=== PATIENT | female | born 1935 | race Caucasian/White ===

== ENCOUNTER 2017-10-18 00:05 | Inpatient (IN) | payer OTHER ==
[2017-10-18] VITALS (13 sets, daily range): BP systolic 111–145; BP diastolic 58–85
[~2017-10-18] VITALS: Ht 160 cm; Wt 53.1 kg
[~2017-10-18 00:05] MED LIST: ALLEGRA ALLERG180 MG PO; ASPIRIN81 M2 PO; CORGARD40 M1 PO; KLOR-CON 1010 MEQ PO; MULTIVITAMINS; PROZAC 20 MG20 MG PO; REMICADE 1100 MG/VIA IV; TRIAMTERENE-HC1 EACH PO; TUMS PO; VITAMIN D3400 UNIT PO; ZOCOR 20 MG TAB20 M1 PO
[2017-10-18] MEDS ORDERED: REMICADE 1100 MG/VIA (00:16)
[2017-10-18] MEDS ORDERED: CULTURELLE1 EAC1 PO (00:17)
[2017-10-18] MEDS ORDERED: PEPCID20 MG PO (00:18)
[2017-10-18] MEDS ORDERED: MULTIVITAMINS PO (00:18)
[2017-10-18 00:35] LABS: ABSOLUTE EOSINOPHILS 0.5 thou/uL (0.0-0.7); ABSOLUTE LYMPHOCYTES 2.7 thou/uL (0.8-5.3); ABSOLUTE MONOCYTES 0.9 thou/uL (0.0-1.2); ABSOLUTE NEUTROPHILS 8.9 thou/uL (1.6-8.1); BASOPHILS 0.3 %; EOSINOPHILS 3.5 %; HEMATOCRIT 40.8 % (37.0-47.0); HEMOGLOBIN 13.4 gm/dL (12.0-15.0); LYMPHOCYTES 21.1 %; MCHC 32.8 g/dL (28.0-37.0); MCV 91.3 fL (80.0-100.0); MONOCYTES 6.8 %; MPV 9.2 fl. (7.2-11.1); NUCLEATED RBCS 0 /100WBC; PLATELET COUNT* 298 thou/uL (150-400); POLYS 68.3 %; RBC 4.47 mil/uL (4.20-5.00); RDW-CV 15.5 % (10.5-14.5)
[2017-10-18 00:39] LABS: CALCIUM 8.9 mg/dL (8.5-10.1); POTASSIUM 3.8 mmol/L (3.5-5.1)
[2017-10-18 00:42] LABS: APTT 28.9 Seconds (25.0-31.3); PROTIME 9.9 Seconds (9.20-11.50)
[2017-10-18 00:57] LABS: ALBUMIN 3.3 g/dL (3.4-5.0); CK-MB MASS 6.3 ng/mL (<0.5-3.6); MAGNESIUM 1.6 mg/dL (1.8-2.4); TOTAL BILIRUBIN 0.2 mg/dL (<0.1-1.0); TOTAL PROTEIN 7.1 g/dL (6.4-8.2); TROPONIN-I LEVEL 0.26 ng/mL (<0.06)
--- NOTE | 2017-10-18 08:10 | NUR ---
CALL FROM DIRECTOR OF CONTENT AND PROGRAMMING, [facility] NURSEIRINA WAS CONTACTED ABOUT PT AND ELEVATED TROPONIN
--- NOTE | 2017-10-18 09:02 | NUR ---
DR SANTORO REQUESTING TO BE TOLD WHEN PT'S DAUGHTER VISITS THE PT SO HE CAN EXPLAIN THAT THE PT NEEDS TO GO TO CARDIAC LINE INSPECTOR.
--- NOTE | 2017-10-18 09:51 | NUR ---
DR SANTORO IS SPEAKING WITH PT AND HER FAMILY MEMBERS AT THIS TIME.
--- NOTE | 2017-10-18 21:50 | NUR ---
ABOUT 30 MIN AFTER STEPPING OUT OF PT ROOM. PT STARTED REMOVING IV'S, TOOK OFF LEADS, PULLED OUT HER VILLEDA. TRYING TO GET OF BED. SHE BECAME COMBATIVE, EXTREMELY CONFUSED, TRYING TO HIT STAFF. TWO OF US WERE HOLDING HER DOWN WHILE DAUGHTER WAS CALLED AND WAITING ON CALL BACK. WHEN DAUGHTER ARRIVED PT DID NOT CALM DOWN. DAUGHTER (NUHA) SAID THIS WAS NOT LIKE HER AT HOME SHE STATED "SHE IS COMPLETELY OUT OF IT, SHE LIVES AT HOME ON HER OWN AND IS VERY CHILL ALWAYS RELAXED, THIS IS NOT HER". NUHA TRIED GIVING PT HER BRILINTA PT SPIT IT OUT TOWARDS HER. AFTER NO OTHER MEASURES TO CALM PT DOWN ORDERS RECIEVED TO PLACE RESTRAINTS ON PT. FAMILY AGREED WITH PLAN. SHE RECIEVED ONE DOSE OF ATIVAN AND THAT SEEMED TO DE-ESCALATE HER COMBATIVE BEHAVIOR. SPOKE WITH CARDIOLOGY ABOUT NOT BEING ABLE TO TAKE BRILINTA D/T PT CURRENT STATE. ORDERS TO START AGGRASTAT IV GTT TELL PT IS ABLE TO TAKE PO BRILINA.
[2017-10-19] VITALS (17 sets, daily range): BP systolic 103–140; BP diastolic 49–90
[2017-10-19 04:32] LABS: ABSOLUTE BASOPHILS 0.1 thou/uL (0.0-0.2); ABSOLUTE EOSINOPHILS 0.1 thou/uL (0.0-0.7); ABSOLUTE MONOCYTES 0.9 thou/uL (0.0-1.2); ABSOLUTE NEUTROPHILS 12.4 thou/uL (1.6-8.1); BASOPHILS 0.4 %; EOSINOPHILS 0.6 %; HEMATOCRIT 35.1 % (37.0-47.0); HEMOGLOBIN 11.5 gm/dL (12.0-15.0); MCH 29.8 pg (26.0-34.0); MCHC 32.7 g/dL (28.0-37.0); MCV 91.2 fL (80.0-100.0); NUCLEATED RBCS 0 /100WBC; PLATELET COUNT* 244 thou/uL (150-400); RBC 3.85 mil/uL (4.20-5.00); RDW-CV 15.4 % (10.5-14.5); WBC 15.5 thou/uL (4.0-11.0)
[2017-10-19 04:48] LABS: CALCIUM 8.5 mg/dL (8.5-10.1); CREATININE 0.9 mg/dL (0.6-1.3); POTASSIUM 3.2 mmol/L (3.5-5.1)
--- NOTE | 2017-10-19 05:03 | NUR ---
PATIENT PROGRESSING TOWARDS GOALS. SHE IS CURRENTLY SLEEPING. BP WNL. ART-LINE IN PLACE. ON 2L O2. AGGRASTAT GTT RUNNING PER CARDIOLOGY ORDERS. PT SHEATH IN PLACE EXPECTED TO BE REMOVED IN A.M. LEFT LEG REMAINS STRAIGHT IN RESTRAINT. PT HAS BILATERAL SOFT WRIST RESTRAINTS. UO ADEQUATE, VILLEDA IN PLACE. BED TO LOWEST POSITION. RECIEVED Q2H TURNS. CONSISTENT OBSERVATION NEEDED THROUGHOUT SHIFT.
--- NOTE | 2017-10-19 08:27 | NUR ---
Phone conversation with Dr. Brewer stated to pull sheath and maintain bleeding before CT of head completed. CT notified.
[2017-10-19 10:44] LABS: CALCIUM 8.5 mg/dL (8.5-10.1); CREATININE 0.9 mg/dL (0.6-1.3); MAGNESIUM 1.4 mg/dL (1.8-2.4)
[2017-10-19 10:45] LABS: POTASSIUM 2.9 mmol/L (3.5-5.1)
--- NOTE | 2017-10-19 11:05 | 2DMMODE ---
[place] [address] 2 D/M-MODE ECHOCARDIOGRAM Name: KAYLA MENDOZA Room: 006-P ADM IN [facility]#: [id number] Admission: 10/18/17 Attend Phys: Boyd Brewer, Discharge: Date of : 33 Date of Service: 10/19/17 1105 Report #: [id number] THIS REPORT FOR: //name// APPROVED REPORT Study performed: 10/19/2017 09:54:55 EXAM: Comprehensive 2D, Doppler, and color-flow Echocardiogram Patient Location: In-Patient Room #: 006 Status: routine BSA: 1.49 HR: 69 bpm BP: 125/60 mmHg Rhythm: NSR Other Information Study Quality: Good Indications Elevated Troponin Chest Pain 2D Dimensions LVEF(%): 66.14 (>50%) IVSd: 11.15 (7-11mm) LVOT Diam: 19.27 (18-24mm) LVDd: 49.06 mm PWd: 11.30 (7-11mm) Ascending Ao: 40.99 (22-36mm) LVDs: 31.13 (25-40mm) Aortic Root: 33.90 mm Bazzi's LVEF: 66.14 % Volumes Left Atrial Volume (Systole) LA ESV Index: 50.20 mL/m2 Aortic Valve AoV Peak Jony.: 1.59 m/s AO Peak Gr.: 10.17 mmHg LVOT Max P.13 mmHg AO Mean Gr.: 4.64 mmHg LVOT Mean P.07 mmHg LVOT Max V: 1.34 m/s AO V2 VTI: 30.05 cm LVOT Mean V: 0.79 m/s LEONILA (VTI): 2.49 cm2 LVOT V1 VTI: 25.65 cm AI Mccracken: 2.74 m/s2 AI PHT: 466.74 [place] [address] 2 D/M-MODE ECHOCARDIOGRAM Name: KAYLA MENDOZA Room: [address] IN M.R.#: [id number] Admission: 10/18/17 Attend Phys: Boyd Brewer, Discharge: Date of : 34 Date of Service: 10/19/17 1105 Report #: [id number] Mitral Valve E/A Ratio: 1.02 MV Decel. Time: 217.55 ms MV E Max Jony.: 0.93 m/s MV PHT: 63.09 ms MVA (PHT): 3.49 cm2 TDI E/Lateral E': 13.29 E/Medial E': 13.29 Medial E' Jony.: 0.07 m/s Lateral E' Jony.: 0.07 m/s Pulmonary Valve PV Peak Jony.: 0.77 m/s PV Peak Gr.: 2.39 mmHg Tricuspid Valve RAP Estimate: 5.00 mmHg TR Peak Gr.: 34.13 mmHg RVSP: 34.13 mmHg PA Pressure: 39.13 mmHg Left Ventricle The left ventricle is normal size. There is inferobasilar hypokinesis. There is normal left ventricular wall thickness. Left ventricular systolic function is normal. The left ventricular ejection fraction is within the normal range. LVEF is 55-60%. The left ventricular diastolic function is normal. Right Ventricle The right ventricle is normal size. The right ventricular systolic function is normal. Atria Left atrium is severely dilated. The right atrium size is normal. Aortic Valve Mild aortic valve sclerosis. Mild to moderate aortic regurgitation. No hemodynamically significant valvular aortic stenosis. Mitral Valve The mitral valve is normal in structure. Moderate mitral regurgitation. No evidence of mitral valve stenosis. Tricuspid Valve The tricuspid valve is normal in structure. [place] [address] 2 D/M-MODE ECHOCARDIOGRAM Name: KYALA MENDOZA Room: [address] IN M.R.#: [id number] Admission: 10/18/17 Attend Phys: Boyd Brewer, Discharge: Date of : 34 Date of Service: 10/19/17 1105 Report #: [id number] regurgitation. Mild pulmonary hypertension. Pulmonic Valve The pulmonary valve is normal in structure. There is no pulmonic valvular regurgitation. Great Vessels The aortic root is normal in size. The ascending aorta is dilated. IVC is normal in size and collapses with >50% inspiration Pericardium There is no pericardial effusion. <Conclusion> The left ventricle is normal size. There is normal left ventricular wall thickness. Left ventricular systolic function is normal. The left ventricular ejection fraction is within the normal range. LVEF is 55-60%. The left ventricular diastolic function is normal. The right ventricle is normal size. Left atrium is severely dilated. Mild aortic valve sclerosis. Mild to moderate aortic regurgitation. No hemodynamically significant valvular aortic stenosis. The mitral valve is normal in structure. Moderate mitral regurgitation. The tricuspid valve is normal in structure. IVC is normal in size and collapses with >50% inspiration There is no pericardial effusion. There is inferobasilar hypokinesis. <ELECTRONICALLY SIGNED> By: Robin Avila MD, FACC 10/19/17 1105 1105 1105 Robin Avila MD, FACC /INF
--- NOTE | 2017-10-19 13:08 | CON ---
[address] [address] CONSULTATION Name: KAYLA MENDOZA Room: [address] IN .R.#: [id number] Admission: 10/18/17 Attend Phys: Boyd Brewer MD Discharge: Date of : 34 Report #: [id number] THIS REPORT FOR: //name// CC: Boyd Boothe DATE OF SERVICE: 10/18/2017 INDICATION: Non-ST elevation myocardial infarction. HISTORY OF PRESENT ILLNESS: The patient is an 82-year-old white female who presented to the Emergency Room last night complaining of substernal chest pressure and discomfort. She at first felt this was due to her gastroesophageal reflux and took Maalox without relief. In the Emergency Room, her troponins have trended up to a peak of 7.33 currently. She continues to have some substernal chest pressure. EKGs showed sinus rhythm without ST elevation. She has no prior cardiac history. She is mildly bradycardic on the monitor. She denies other associated symptoms or radiation of her discomfort. PAST MEDICAL HISTORY: 1. GERD. 2. Hypertension. 3. Crohn's. 4. Hyperlipidemia. ALLERGIES: IMURAN. CURRENT MEDICATIONS: Mindy 1 tablet daily, aspirin 81 mg daily, Prozac 20 mg b.i.d., Remicade 100 mg as directed, Corgard 40 mg daily, Zocor 20 mg daily, potassium chloride 10 mEq 2 tablets daily, Maxzide 50/25 one tablet daily, vitamin D 400 units 2 tablets daily, Tums 1 tablet daily, Culturelle 1 capsule daily, multivitamin 1 tablet daily, Pepcid 20 mg daily. REVIEW OF SYSTEMS: Not obtainable. SOCIAL HISTORY: The patient does not smoke. She does not drink alcohol. PHYSICAL EXAMINATION: VITAL SIGNS: Stable. Blood pressure 136/68, pulse 54 and regular. GENERAL: This is a pleasant elderly female who is hard of hearing. HEENT: The patient is wearing glasses. Extraocular muscles are intact. Mucous membranes are moist. NECK: Shows no jugular venous distention. There are no carotid bruits. CHEST: Reveals clear lung lawrence without wheezes or rales. CARDIOVASCULAR: Reveals a regular rhythm, normal S1 and [place] [address] CONSULTATION Name: KAYLA MENDOZA GREGORY Room: [address] IN [facility]#: [id number] Admission: 10/18/17 Attend Phys: Boyd Brewer MD Discharge: Date of : 34 Report #: [id number] appreciate gallop or murmur. ABDOMEN: Reveals normal bowel sounds. The abdomen is soft and nontender. EXTREMITIES: Shows no edema. Peripheral pulses are 2+ and easily palpable. SKIN: Warm and dry. A 12-lead EKG shows sinus rhythm without acute ST or T-wave abnormality. LABORATORY DATA: Reviewed and are significant for glucose of 133. Troponin initially 0.26 and subsequently 7.33. Chest x-ray shows no acute infiltrate or heart failure. IMPRESSION AND RECOMMENDATIONS: 1. Non-ST elevation myocardial infarction. The patient has been placed on a heparin drip. We will proceed with cardiac catheterization and possible intervention as deemed necessary. 2. Hyperlipidemia. Continue current statin agent. Recommend goal LDL of 70 or less. 3. Hypertension, adequately controlled presently. Continue as outlined above. <ELECTRONICALLY SIGNED> By: Ministerio Mullen MD, FACC 10/19/17 1308 1005 1100Micana Mullen MD, FACC /nt
--- NOTE | 2017-10-19 13:33 | EKG ---
[place] [address] ELECTROCARDIOGRAM REPORT Name: KAYLA MENDOZA Room: [address] IN .R.#: [id number] Admission: 10/18/17 Attend Phys: Boyd Brewer MD Discharge: Date of : 34 Report #: [id number] THIS REPORT FOR: //name// [facility] ED Test Date: 2017-10-18 Test Time: 00:09:09 Pat Name: KAYLA MENDOZA Department: Room: Gender: F Medical Care Manager: ID : [id number] Requested By: Azael Jimenez Order Number: [id number] MD: Ministerio Mullen Measurements Intervals [place] Rate: 58 P: 71 TX: 183 QRS: 66 QRSD: 98 T: 106 QT: 465 QTc: 457 Interpretive Statements Sinus rhythm LVH with secondary repolarization abnormality Inferior infarct age indeterminate Compared to ECG 12/19/2016 14:20:23 Left ventricular hypertrophy now present Early repolarization now present T-wave abnormality no longer present Electronically Signed On 10-19-2017 13:33:09 CDT by Ministerio Mullen [email or web address] <ELECTRONICALLY SIGNED> By: Ministerio Mullen MD, FACC 10/19/17 1333 0009 0009 Ministerio Mullen MD, [facility] /EPI
--- NOTE | 2017-10-19 13:34 | EKG ---
[place] [address] ELECTROCARDIOGRAM REPORT Name: KAYLA MENDOZA Room: [address] ADM IN .R.#: [id number] Admission: 10/18/17 Attend Phys: Boyd Brewer MD Discharge: Date of : 34 Report #: [id number] THIS REPORT FOR: //name// [facility] ED Test Date: 2017-10-18 Test Time: 06:08:17 Pat Name: KAYLA MENDOZA Department: Room: [place] [address] Gender: F Supervisor [employer]: IVONNE : 1935 Requested By: Azael Jimenez Order Number: [id number] MD: Ministerio Mullen Measurements Intervals [place] Rate: 50 P: 25 AR: 157 QRS: 34 QRSD: 104 T: 12 QT: 448 QTc: 409 Interpretive Statements Sinus rhythm LVH with secondary repolarization abnormality Compared to ECG 12/19/2016 14:20:23 Left ventricular hypertrophy now present Early repolarization now present T-wave abnormality no longer present Electronically Signed On 10-19-2017 13:33:53 CDT by Ministerio Mullen [email or web address] <ELECTRONICALLY SIGNED> By: Ministerio Mullen MD, FACC 10/19/17 [id number] [id number] Ministerio Mullen MD, [facility] /EPI
--- NOTE | 2017-10-19 13:35 | EKG ---
[place] [address] ELECTROCARDIOGRAM REPORT Name: KAYLA MENDOZA Room: [address] ADM IN .R.#: [id number] Admission: 10/18/17 Attend Phys: Boyd Brewer MD Discharge: Date of : 34 Report #: [id number] THIS REPORT FOR: //name// [facility] ED Test Date: 2017-10-18 Test Time: 11:54:37 Pat Name: KAYLA MENDOZA Department: Room: [place] [address] Gender: F Container Finisher: : 1935 Requested By: Azael Jimenez Order Number: [id number] MD: Ministerio Mullen Measurements Intervals [place] Rate: 46 P: 50 MA: 154 QRS: 2 QRSD: 103 T: -4 QT: 539 QTc: 472 Interpretive Statements Sinus bradycardia Inferior infarct, age indeterminate Lateral leads are also involved Compared to ECG 12/19/2016 14:20:23 Myocardial infarct finding now present Sinus rhythm no longer present T-wave abnormality no longer present Electronically Signed On 10-19-2017 13:35:40 CDT by Ministerio Mullen [email or web address] <ELECTRONICALLY SIGNED> By: Ministerio Mullen MD, FACC 10/19/17 1335 1154 1154 Ministerio Mullen MD, FAC /EPI
--- NOTE | 2017-10-19 13:37 | EKG ---
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: UNKNOWN : 1935 Requested By: Robin Avila Order Number: [id number] Nola MD: Ministerio Mullen Measurements Intervals [place] Rate: 55 P: 66 GA: 176 QRS: 56 QRSD: 103 T: -60 QT: 523 QTc: 501 Interpretive Statements Sinus rhythm Consider RVH w/ secondary repol abnormality LVH with secondary repolarization abnormality Prolonged QT interval Compared to ECG 12/19/2016 14:20:23 Left ventricular hypertrophy now present Early repolarization now present T-wave abnormality no longer present Electronically Signed On 10-19-2017 13:37:28 CDT by Ministerio Mullen [email or web address] <ELECTRONICALLY SIGNED> By: Ministerio Mullen MD, FACC 10/19/17 1337 28 28 Ministerio Mullen MD, FAC /EPI
--- NOTE | 2017-10-19 13:37 | EKG ---
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 : 1935 Requested By: Robin Avila Order Number: [id number] Reading MD: Ministerio Mullen Measurements Intervals [place] Rate: 54 P: 69 MO: 174 QRS: 53 QRSD: 98 T: -48 QT: 528 QTc: 501 Interpretive Statements Sinus rhythm Probable LVH with secondary repol abnrm Inferior infarct, age indeterminate, possible Prolonged QT interval Compared to ECG 12/19/2016 14:20:23 Myocardial infarct finding now present T-wave abnormality no longer present Electronically Signed On 10-19-2017 13:37:38 CDT by Ministerio Mullen [email or web address] <ELECTRONICALLY SIGNED> By: Ministerio Mullen MD, FACC 10/19/17 1337 29 29 Ministerio Mullen MD, FAC /EPI
--- NOTE | 2017-10-19 15:50 | NUR ---
PT HAD CARDIAC CATH YESTERDAY. WAS VERY AGITATED LAST NIGHT. SLEEPING SOUNDLY NOW AFTER MEDS EARLIER TO SEDATE HER A LITTLE BIT TO REMOVE THE SHEATH AND GET A HEAD CT SCAN DONE. SPOKE WITH DTRS AT BEDSIDE. PT LIVES ALONE, IS NORMALLY VERY ALERT AND INDEP ACCORDING TO DTRS. PT PAYS HER OWN BILLS, COOKS, CLEANS, ETC. PT DOES HAVE A CANE. DTRS SAY THEY HAVE TALKED WITH THE DIRECTOR PHARMACEUTICAL, AND NURSES HAVE BEEN DOING A GOOD JOB IN ANSWERING THEIR QUESTIONS. THEY ARE JUST WORRIED ABOUT WHAT IS GOING ON WITH HER AND WHY SHE WAS SO AGITATED LAST NIGHT AND SO SLEEPY TODAY. EXPLAINED ROLE OF CASE MGT, WILL CONTINUE TO FOLLOW.
--- NOTE | 2017-10-19 16:15 | NUR ---
PT CONFUSED THROUGHOUT THE DAY. SHE BECAME LESS COMBATIVE AROUND 1300 AND WAS ABLE TO SIT UP FOR ABOUT AN HOUR. PT REFUSED TO EAT BUT DID TAKE A FEW SIPS OF WATER. SHE IS STILL UNABLE TO TAKE MEDICATION AT THIS TIME DUE TO CONFUSION. VSS THROUGHOUT THE DAY. ASSESSMENT CHARTED.
[2017-10-20] VITALS: BP 124/61
--- NOTE | 2017-10-20 05:15 | NUR ---
ASSUMED PATIENT CARE AT 1900. NEW IV PLACED AND ELECTROLYTE REPLACEMENT COMPLETED PER PROTOCOL. PATIENT HAS BEEN ROUSABLE TO STIMULI THROUGHT THE NIGHT, REFLECTED IN RN ASSESSMENTS. PATIENT MOVES INDEPENDENTLY IN BED, OFTEN GETTING WIRES/LEADS TANGLE ABOUT HER. IV REMAINS PATENT. PATIENT VERBALIZED BEING HUNGRY, SEVERAL CHOICES GIVEN, PATIENT DOD NOT WANT ANY OF THEM. WAS ABLE TO GET HER TO TAKE LOADING DOSE 180MG BRILLINTA. NO ISSUES NOTED. PATIENT HAS MINOR COMPLAINTS OF "I FEEL LIKE IT IS HARD TO BREATHE" EDUCATION DONE WELL POSSIBLE,THE PATIENT IS EXCEDINGLY HARD OF HEARING, ON PROCEDURE THAT SHE HAD DONE. NO COMPLAINTS OF PAIN OR DISCOMFORT. STATES "WHEN CAN I GET OUT OF HERE" ABLE TO VERBALIZE THAT SHE IS IN A HOSPITAL. WILL CONTINUE TO MONITOR
[2017-10-20 05:27] LABS: MAGNESIUM 1.8 mg/dL (1.8-2.4)
[2017-10-20 05:28] LABS: POTASSIUM 4.1 mmol/L (3.5-5.1)
[2017-10-20 08:00] VITALS: BP 128/73
--- NOTE | 2017-10-20 11:00 | NUR ---
PT TO TRANSFER TO TELEMETRY. REPORT GIVEN TO BILL LINDER. PT AND ALL BELONGINGS TO ROOM 205.
--- NOTE | 2017-10-20 11:10 | NUR ---
PATIENT TRANSFER FROM ICU BED 6 TO 205 PATIENT ASSISTED OUT VIA TO TELEPHONE REPORT GIVEN FAMILY AT BEDSIDE PATIENT AND FAMILY ORIENTED TO AND CALL LIGHT
[2017-10-20 11:46] VITALS: BP 133/83
--- NOTE | 2017-10-20 15:18 | NUR ---
RECEIVED REPORT FROM ANDREY. PT RESTING IN BED COMFORTABLY. PT ALERT AND ORIETNED X2 PT VERY [place]. PT ON RA. IV SALINE LOCKED. PT DENIES ANY PAIN AT THIS TIME. BED ALARM ON FOR PT SAFETY. CALL LIGHT IS WITIN REACH. WILL CONTINUE TO MONITOR FOR DURAITON OF SHIFT.
[2017-10-20 15:26] VITALS: BP 162/64
[2017-10-20 15:38] VITALS: BP 162/64
--- NOTE | 2017-10-20 17:05 | NUR ---
VSS. CARDIAC MONITORING IN PLACE SR. PT PROGRESSING TOWARDS GOALS. PT HAS VOICED NO COMPLAINTS OF PAIN OR DISCOMFORT THIS AFTERNOON. PT REMAINS ON RA. IV SALINE LOCKED. PT IS UP WITH ASSISTANCE. VILLEDA IN PLACE. CALL LIGHT IS WITHIN REACH. BED ALARM ON FOR PT SAFETY. WILL CONTINUE TO MONTIOR FOR DURATION OF SHIFT.
[2017-10-20 19:15] VITALS: BP 133/70
[2017-10-21] VITALS: BP 145/85
[2017-10-21 04:00] VITALS: BP 160/95
--- NOTE | 2017-10-21 04:17 | NUR ---
PT HAS BECOME INCREASINGLY CONFUSED THROUGHOUT [facility]. PT HAS PULLED OF GOWN MONITOR OFF SEVERAL TIMES, PT PULLED IV OUT. AND HAS CRAWLED OVER RAILS SEVERAL TIMES. ATTEMPTED TO REORIENT AND PLACE BACK IN BED. TELEMETRY PACK REAPPLIED AND ALARMS SET. BED ALARMS ON. PT IS CONFUSED ABOUT IT BEING NIGHT TIME. O2 SAT DCREASED TO 88%, O2 2L BNC APPLIED AND O2 SAT INCREASED TO 94%. WILL CONTINUE TO MONITOR
[2017-10-21 04:23] LABS: HEMATOCRIT 33.6 % (37.0-47.0); HEMOGLOBIN 10.9 gm/dL (12.0-15.0); MCHC 32.6 g/dL (28.0-37.0); MCV 92.1 fL (80.0-100.0); MPV 9.5 fl. (7.2-11.1); NUCLEATED RBCS 0 /100WBC; PLATELET COUNT* 240 thou/uL (150-400); RBC 3.64 mil/uL (4.20-5.00); RDW-CV 15.8 % (10.5-14.5); WBC 25.7 thou/uL (4.0-11.0)
[2017-10-21 04:42] LABS: ALBUMIN 2.9 g/dL (3.4-5.0); CALCIUM 8.8 mg/dL (8.5-10.1); CREATININE 0.9 mg/dL (0.6-1.3); POTASSIUM 3.5 mmol/L (3.5-5.1); TOTAL BILIRUBIN 1.5 mg/dL (<0.1-1.0)
[2017-10-21 05:51] LABS: ABSOLUTE LYMPHOCYTES 1.3 thou/uL (0.8-5.3); ABSOLUTE NEUTROPHILS 23.4 thou/uL (1.6-8.1); ANISOCYTOSIS 1+; PLATELET ESTIMATE ADEQUATE; POIKILOCYTOSIS 1+
--- NOTE | 2017-10-21 07:45 | NUR ---
RECEIVED REPORT FROM JIN AND ASSUMED CARE OF PT @ 8725.PT IS ALERT BUT CONFUSED AND FORGETFUL.VSS,TRACING SR ON THE MONITOR.LUNG SOUNDS ARE CLEAR WITH AUDIBLE WHEEZES ON EXPIRATION.IV LEFT UPPER ARM PATENT AND SALINE LOCKED.CALM AND COOPERATIVE WITH NO C/O PAIN AT TIME OF ASSESSMENT.PT IS UP WITH ONE ASSIST IN ROOM.PT IS IMPULSIVE AND HAS GOT OUT OF BED SEVERAL TIMES THIS MORNING.CALL LIGHT AND FALL PRECAUTIONS IN PLACE.WILL CONTINUE TO MONITOR.FAMILY AT BEDSIDE.
--- NOTE | 2017-10-21 10:00 | NUR ---
Family wanting Pt to go skilled at dc, family requesting [facility], faxed initial referral to [facility], awaiting PT/ST [place], will fax when available. Following.
[2017-10-21 11:30] VITALS: BP 129/74
--- NOTE | 2017-10-21 12:17 | EEG ---
[address] [address] EEG STUDY REPORT Name: KELLYKAYLA GREGORY Room: [address] IN M.R.#: [id number] Admission: 10/18/17 Attend Phys: Boyd Brewer MD Discharge: Date of : 34 Report #: [id number] THIS REPORT FOR: //name// CC: Boyd Kelly [place] DATE OF SERVICE: 10/20/2017 This patient is being evaluated for altered mental status. EEG was done by placing the electrodes by standard 10-20 system of electrode placement. Both referential and sequential montages were used for recording. Background activity in this patient's EEG is about 8 Hz and 30 microvolts. The patient became drowsy that is associated with bilateral slowing and vertex sharp waves. Photic stimulation is unremarkable. Throughout the record, no active epileptiform activity was noticed. IMPRESSION: This patient's electroencephalogram is intermixed with theta range slowing on both sides. That is a nonspecific abnormality, which can occur with encephalopathy, effect of psychotropic medication, dementia, etc. Clinical correlation is recommended. <ELECTRONICALLY SIGNED> By: Kartik Yeung MD 10/21/17 1217 1201 1211Pvinicius Yeung MD /nt
--- NOTE | 2017-10-21 12:17 | CON ---
[address] [address] CONSULTATION Name: KAYLA MENDOZA Room: [address] IN M.R.#: [id number] Admission: 10/18/17 Attend Phys: Boyd Brewer MD Discharge: Date of : 34 Report #: [id number] THIS REPORT FOR: //name// CC: Boyd Boothe DATE OF SERVICE: 10/19/2017 HISTORY OF PRESENT ILLNESS: This is an 82-year-old female patient who was evaluated by me for altered mental status. History is from the patient's family. The patient was admitted with chest pain. She underwent stent, but now she is not responding and she is agitated. They said prior to this, her memory was good. When I saw this patient, she was sleeping and she has received some sedation. REVIEW OF SYSTEMS: Positive for chest pain for which she was admitted. She also has a history of vomiting. She has a history of hypertension. Apparently, her memory was okay before it happened, but that is according to the family and there is no independent verification for that. I carried out the 14-point review of system the best I can and this was her relevant 14-point review of system. PAST MEDICAL HISTORY: Negative for any stroke. FAMILY HISTORY: Negative for early age stroke. SOCIAL HISTORY: She has two daughters and I talked to both of them. PHYSICAL EXAMINATION: Indicate she is pretty sleepy. I tried to wake her up. She did not wake up. She did not follow any simple command. Cranial nerve examination 2-12 was attempted. She was not able to cooperate. I cannot tell whether she is moving all 4 extremities or not. She had stent put in. She does not appear to be in any respiratory difficulty. There is no edema, cyanosis or jaundice. I cannot tell about hearing or vision and she does not appear to have any thyroid mass. Blood pressure is 126/68, temperature is 99, respiration is 17, pulse is 67. LABORATORY DATA: Indicate a white count of 15.5. IMPRESSION: This patient clinically does appear to have encephalopathy. She did have a CT scan of the head, which appear unremarkable. She will not be able to cooperate with MRI. If she does become cooperative, we might get it if they allow it with the stent. RECOMMENDATIONS: 1[place] [id number] CONSULTATION Name: KAYLA MENDOZA Room: [address] IN [facility]#: [id number] Admission: 10/18/17 Attend Phys: Boyd Brewer MD Discharge: Date of : 34 Report #: [id number] 2. Carotid Doppler. 3. TSH. 4. Vitamin B12. 5. Reevaluate tomorrow and see how she is doing and talk to the family again. Thank you very much for this referral. <ELECTRONICALLY SIGNED> By: Kartik Yeung MD 10/21/17 1217 [id number] shekhar Jolley
[2017-10-21 14:18] LABS: BE -2.9 mmol/L (-2 to +3); PCO2 22.2 mmHg (35.0-45.0); PO2 60.2 mmHg (75.0-100.0); pH 7.527 (7.340-7.450)
[2017-10-21 14:47] LABS: URINE BLOOD 1+ (Negative); URINE CLARITY CLEAR; URINE COLOR YELLOW; URINE GLUCOSE-RANDOM NEGATIVE (Negative); URINE KETONES 1+ (Negative); URINE LEUKOCYTES NEGATIVE (Negative); URINE NITRITE NEGATIVE (Negative); URINE PROTEIN 2+ (Negative); URINE SPECIFIC GRAVITY 1.025 (1.005-1.030)
[2017-10-21 14:48] LABS: ICTOTEST (BILI CONFIRMATORY) Negative (Negative); URINE BILIRUBIN 1+ (Negative)
[2017-10-21 14:56] LABS: BACTERIA None Seen /HPF (None Seen); SQUAMOUS 4-10 Moderate /LPF (0-3); URINE RBC 0-2 Rare /HPF (0-2); URINE WBC 0-5 Rare /HPF (0-5)
[2017-10-21 14:57] LABS: CASTS None Seen /LPF (None Seen); CRYSTALS None Seen /LPF (None Seen); MUCUS 0-3 Light strn/LPF (None Seen)
[2017-10-21 15:39] VITALS: BP 118/75
--- NOTE | 2017-10-21 17:17 | NUR ---
VSS,CARDIAC MONITORING IN PLACE WITH NO CHANGES.PT REMAINS ON 2L O2 NEEDED.IV ANTIBIOTICS GIVEN.UA COLLECTED PER STRAIGHT CATH.CXR COMPLETED.ABG COMPLETED.PT REMAINS ON CONTINUOUS PULSE OX.PT HAS AMBULATED IN HALLWAY WITH NURSING STAFF AND PHYSICAL THERAPY.PT HAS BEEN UP TO CHAIR SEVERAL TIMES.HOURLY ROUNDING COMPLETED FOR PT SAFETY.CALL LIGHT AND FALL PRECAUTIONS IN PLACE.FAMILY AT BEDSIDE.WILL CONTINUE TO MONITOR FOR DURATION OF SHIFT.
[2017-10-21 19:45] VITALS: BP 131/77
[2017-10-22] VITALS: BP 127/73
[2017-10-22 04:00] VITALS: BP 123/84
[2017-10-22 04:44] LABS: ABSOLUTE BASOPHILS 0.1 thou/uL (0.0-0.2); ABSOLUTE LYMPHOCYTES 0.6 thou/uL (0.8-5.3); ABSOLUTE MONOCYTES 0.4 thou/uL (0.0-1.2); ABSOLUTE NEUTROPHILS 24.4 thou/uL (1.6-8.1); BASOPHILS 0.4 %; HEMATOCRIT 33.5 % (37.0-47.0); LYMPHOCYTES 2.4 %; MCH 29.8 pg (26.0-34.0); MCHC 32.8 g/dL (28.0-37.0); MCV 90.7 fL (80.0-100.0); MONOCYTES 1.5 %; MPV 9.5 fl. (7.2-11.1); NUCLEATED RBCS 0 /100WBC; PLATELET COUNT* 287 thou/uL (150-400); POLYS 95.7 %; RBC 3.69 mil/uL (4.20-5.00); RDW-CV 15.9 % (10.5-14.5); WBC 25.5 thou/uL (4.0-11.0)
[2017-10-22 05:16] LABS: ALBUMIN 2.7 g/dL (3.4-5.0); CALCIUM 8.9 mg/dL (8.5-10.1); TOTAL BILIRUBIN 1.2 mg/dL (<0.1-1.0); TOTAL PROTEIN 6.6 g/dL (6.4-8.2)
--- NOTE | 2017-10-22 06:03 | NUR ---
END SHIFT: PT RESTED WELL. CONTINUES TO BE ACUTELY CONFUSED AND VERY IMPULSIVE. PT LIKES TO PICK AND LINES, BEDDING, AND TAKE O2 OFF. CONTINUOUS O2 SAT MONITORING IN PROGRESS. PT WILL DESAT VERY QUICKLY OFF ANY O2. PT WITH C/O SOA AND FEELING SHAKING AND PRE-SYNCOPAL OVER SHIFT. SR ON MONITOR. 4L NC. O2 DEMAND HAS INCREASED. INCONTINENT OVER SHIFT. DARK YELLOW FOUL SMELLING URINE NOTED. PT CAN GET AGITATED AND MILDLY AGGRESSIVE AT TIMES AND IS HARD TO RE-ORIENT. SAFETY PRECAUTIONS IN PLACE. VSS. CALL LIGHT IN REACH. PERFORMED HOURLY ROUNDING. WILL CONT TO MONITOR.
[2017-10-22 08:00] VITALS: BP 114/60
--- NOTE | 2017-10-22 10:13 | NUR ---
Pt not ready to dc today, updated MP. MP can accept Pt tomorrow if ready for dc. Contact admissions at [phone] if Pt is ready to dc.
--- NOTE | 2017-10-22 11:01 | CARD ---
[address] [address] CARDIAC CATH REPORT Name: KAYLA MENDOZA Room: [address] IN .R.#: [id number] Admission: 10/18/17 Attend Phys: Boyd Brewer MD Discharge: Date of : 34 Report #: [id number] THIS REPORT FOR: //name// ADDENDUM APPROVED REPORT Study performed: 10/18/2017 14:13:01 Patient Details The patient is a 82 year-old female Event Personnel Ministerio Mullen Electrolysist, Theresa Lindsay RN RN, Sobeida Lang RTR Scrub, Armando Wiley Monitor, Delfina Nichole RTR Monitor, Robin Avila Geospatial Applications Developer, April Mcbride RN business center representative Performed Art Access - R femoral artery* Left Heart Cath w/or w/o Coronaries [id number] [facility] MARGARITA Revasc AMI Total/Sub Single RCA [id number] AMIREVSING Procedure Narrative A [place] 6 FR sheath was inserted into the left femoral artery. Coronary angiography was performed using coronary diagnostic catheters. The right coronary system was accessed and visualized with a 6F JR 4.0 catheter. The left coronary system was accessed and visualized with a 6FR JL 4.0 catheter. The left ventricle was accessed and visualized with a [place] 6 FR catheter. Hemostasis was obtained with manual pressure following sheath removal without any complications. The patient tolerated the procedure well and there were no complications associated with the procedure. Intraoperative Conscious Sedation Sedation start time: 1446 Case end Time: 1831 Fentanyl 75 mcg Dose: 3349 mGy Contrast Type and Amount: Visipaque 550 ml Diagnostic Cath Left Main Normal LAD 10% mid and 30% distal narrowing Diagonal 1 Normal Diagonal 2 30% ostial [place] [address] CARDIAC CATH REPORT Name: KAYLA MENDOZA Room: [address] IN [facility].#: [id number] Admission: 10/18/17 Attend Phys: Boyd Brewer MD Discharge: Date of : 34 Report #: [id number] OM1 30% proximal narrowing OM2 Normal Right Coronary Large vessel that is subtotally occluded in its midportion with calcification noted. Mid and distal vessel filled faintly. R PDA Filled by left to right collaterals.. Free of significant disease. RPLV Filled by [id number] collaterals. Free of significant disease. Left Ventriculography The left ventricle is normal in size with preserved contractility. The left ventricular ejection fraction is estimated to be 50-55%. Left ventricular wall motion abnormalities are present. The basal to mid inferior wall appears severely hypokinetic. Hemodynamics The aortic pressure is 106/68 mmHg with a mean of 81 mmHg. The left ventricular pressure is 158/23 mmHg with a mean of mmHg. The left ventricular end diastolic pressure is 30 mmHg. PCI Technique Lesion Anticoagulation was achieved with Angiomax. Percutaneous coronary intervention was performed on the mid right coronary artery. The lesion stenosis prior to intervention was 95% with IFRAH 1 flow. A 6F IM 100CM Guide Catheter was used to engage the ostium. A IG: ProwaterFlex 180CM Interventional Guidewire was used to cross the lesion. BALLOON DILATION A Balloon catheter NC Trek RX 3.25 X 12 was inserted and inflated up to 18atm for 15seconds. I utilized a guideliner catheter within the VARGAS guide catheter to achieve satisfactory distal stent positioning STENT DEPLOYMENT A drug-eluting stent Resolute RX 3X12 was inserted and inflated up to 18atm for 15seconds. Final angiography reveals 10 % stenosis with IFRAH 3 flow. COMMENTS There was loss of a posterolateral branch of the distal right coronary artery related to atheroembolism to that vessel; this vessel was well collateralized from the left coronary artery via [id number] [address] CARDIAC CATH REPORT Name: KAYLA MENDOZA Room: [address] IN [facility]#: [id number] Admission: 10/18/17 Attend Phys: Boyd Brewer MD Discharge: Date of : 34 Report #: [id number] Conclusion #1 successful percutaneous coronary intervention with deployment of a drug-eluting stent at the site of 95% heavily calcified mid right coronary stenosis with deployment of a drug-eluting stent at that site with 10% residual narrowing and IFRAH-3 flow the distal vessel #2 there was loss of a posterolateral branch during the interventional procedure related to atheroembolism to the posterolateral branch; this was protected via dpuz-ll-anwyr collaterals to the posterolateral branch <ELECTRONICALLY SIGNED> By: Robin Avila MD, [facility] 10/22/17 1101 110 1101Jolucille Avila MD, [facility] /INF
[2017-10-22 12:00] VITALS: BP 118/71
[2017-10-22 15:30] VITALS: BP 119/73
--- NOTE | 2017-10-22 17:54 | NUR ---
RECEIVED REPORT FROM ISAIAH KHAN. TOOK OVER CARE OF PT AROUND 1030AM. THIS RN AGREES WITH VITALS AND REASSESSMENT CHARTED BY ISAIAH KHAN. PT ALERT, ORIENTED TO PERSON, PLACE AND SITUATION - NOT DATE. VSS, O2 SAT 97% ON 4L PER NC, ABLE TO TITRATE PT DOWN TO 2L PER NC THIS SHIFT. CONTINUOUS O2 MONITOR REMAINS IN PLACE. ACID PURIFICATION EQUIPMENT OPERATOR IN PLACE TRACING SR WITH NO CHANGES THIS SHIFT. FAMILY HAS BEEN AT BEDSIDE MOST OF SHIFT. FAMILY EXPRESSED CONCERS ABOUT PT'S CARE THIS HOSPITAL STAY - CHARGE NURSE AND FIREWALL ENGINEER AWARE. FIREWALL ENGINEER SPOKE WITH PT AND FAMILY AT LENGTH. FAMILY REASSURED AND MORE COMFORTABLE WITH CARE AT THIS TIME. PT HAS BEEN ASSISTED UP TO BEDSIDE COMMODE FREQUENTLY THIS SHIFT TO URINATE. NO BM THIS SHIFT. STOOL SOFTENER GIVEN, PT REFUSED MAG CITRATE. PT HAS DENIED PAIN OR DISCOMFORT THROUGHOUT THIS SHIFT. POTASSIUM REPLACMENT IN PROGRESS. PT CURRENTLY RESTING IN BED. CALL LIGHT IS WITHIN REACH. HOURLY ROUNDING PERFORMED. FALL PRECAUTIONS ARE IN PLACE. WCTM FOR DURATION OF SHIFT.
[2017-10-22 19:20] VITALS: BP 127/76
[2017-10-23] VITALS: BP 135/87
--- NOTE | 2017-10-23 00:32 | NUR ---
AT SHIFT CHANGE PT SITTING IN CHAIR AT BEDSIDE. DENIES PAIN OR SOB. RESP REG AND UNALBORED SKIN W/D NO ACUTE DISTRESS NOTED. TELEMETRY PACK INTACT WITH ALARMS SET. O2 3L BNC INTACT. PT ASSISTED BACK TO BED. 2338 PT NOTED TO HAVE DECREASE IN HR TO 38. PT AAO DENIED CHEST PAIN BUT APPEARED SOB. O2 SAT 86%. O2 INCREASED TO 4L BNC. 0025 PT HR INCREASED TO 144, PT C/O BEING HOT AND SOB. O2 SAT DECREASED TO 84%. NON REBREATHER PLACED ON PT AND O2 SAT INCREASED TO 93%. EKG PERFORMED AND SHOWED SR. HR DECREASED TO 74. VSS WILL CONTINUE TO MONITOR
[2017-10-23 04:00] VITALS: BP 112/48
[2017-10-23 05:14] LABS: ABSOLUTE BASOPHILS 0.1 thou/uL (0.0-0.2); ABSOLUTE LYMPHOCYTES 0.2 thou/uL (0.8-5.3); ABSOLUTE MONOCYTES 1.1 thou/uL (0.0-1.2); ABSOLUTE NEUTROPHILS 22.2 thou/uL (1.6-8.1); BASOPHILS 0.3 %; HEMOGLOBIN 10.8 gm/dL (12.0-15.0); LYMPHOCYTES 0.8 %; MCH 29.7 pg (26.0-34.0); MCHC 31.8 g/dL (28.0-37.0); MCV 93.3 fL (80.0-100.0); MONOCYTES 4.7 %; MPV 9.4 fl. (7.2-11.1); NUCLEATED RBCS 0 /100WBC; PLATELET COUNT* 285 thou/uL (150-400); POLYS 94.2 %; RBC 3.65 mil/uL (4.20-5.00); RDW-CV 15.9 % (10.5-14.5); WBC 23.5 thou/uL (4.0-11.0)
[2017-10-23 05:25] LABS: ALBUMIN 2.5 g/dL (3.4-5.0); CALCIUM 8.8 mg/dL (8.5-10.1); CREATININE 1.4 mg/dL (0.6-1.3); TOTAL BILIRUBIN 0.7 mg/dL (<0.1-1.0); TOTAL PROTEIN 6.6 g/dL (6.4-8.2)
[2017-10-23 05:38] LABS: POTASSIUM 5.9 mmol/L (3.5-5.1)
[2017-10-23 05:42] LABS: PREALBUMIN 14.5 mg/dL (18.0-35.7)
[2017-10-23 08:15] VITALS: BP 119/80
[2017-10-23 11:59] VITALS: BP 112/68
--- NOTE | 2017-10-23 12:40 | EKG ---
[place] [address] ELECTROCARDIOGRAM REPORT Name: KAYLA MENDOZA Room: [address] ADM IN .R.#: [id number] Admission: 10/18/17 Attend Phys: Boyd Brewer MD Discharge: Date of : 34 Report #: [id number] THIS REPORT FOR: //name// [facility] Test Date: 2017-10-23 Test Time: 00:01:25 Pat Name: KAYLA MENDOZA Department: Room: [address] Gender: F House Calls Nurse: FLO : 1935 Requested By: Yahaira Miranda Order Number: [id number] Reading MD: Ministerio Mullen Measurements Intervals [place] Rate: 74 P: 51 OR: 128 QRS: 6 QRSD: 106 T: 4 QT: 454 QTc: 504 Interpretive Statements Sinus rhythm Probable left ventricular hypertrophy Prolonged QT interval Baseline wander in lead(s) I,III,aVR,aVL,aVF,V3,V4,V6 Compared to ECG 10/18/2017 19:30:22 Myocardial infarct finding no longer present Electronically Signed On 10-23-2017 12:40:50 CDT by Ministerio Mullen [email or web address] <ELECTRONICALLY SIGNED> By: Ministerio Mullen MD, FACC 10/23/17 1240 0001 0001 Ministerio Mullen MD, FACC /EPI
--- NOTE | 2017-10-23 14:27 | NUR ---
ASSUMED PT CARE AT 0730, FULL ASSESMENT DONE CHARTED. PT A/O X3, SLIGHTLY FORGETFUL, PLEASANT BUT ANXIOUS AT TIMES. PT DID NOT EAT BREAKFAST OR LUNCH, IS WILLING TO DRINK WATER/TEA. PT TAKES EXTRA TIME TO TAKE PILLS, SWALLOWING WELL, ATTEMPTED TO CRUSH SOME PILLS AND PUT IN APPLESAUCE BUT PT DOES NOT LIKE THE TASTE. PT UP TO CHAIR FOR SEVERAL HOURS AFTER BREAKFAST. PTS VSS, SR ON THE MONITOR. WAS PLACED ON 4L O2 THIS AM, SATS HAVE BEEN IN THE MID 90'S, PT REPORTS HAVING SOME TROUBLE BREATHING, NO SIGNS OF DISTRESS. CONTINUOUS PULSE OX IN PLACE. FALL PRECAUTIONS IN PLACE, BED/CHAIR ALARM USED. PTS FAMILY AT BEDSIDE SINCE MORNING. DR HORNE SPOKE TO FAMILY AND UPDATED ON PLAN OF CARE. WILL CONTINUE TO MONITOR.
[2017-10-23 15:34] VITALS: BP 127/78
[2017-10-23 16:40] LABS: CALCIUM 8.9 mg/dL (8.5-10.1); CREATININE 1.1 mg/dL (0.6-1.3); POTASSIUM 3.6 mmol/L (3.5-5.1)
[2017-10-23 20:32] VITALS: BP 128/77
[2017-10-24] VITALS (7 sets, daily range): BP systolic 114–133; BP diastolic 70–86
[2017-10-24 05:22] LABS: ABSOLUTE BASOPHILS 0.1 thou/uL (0.0-0.2); ABSOLUTE EOSINOPHILS 0.1 thou/uL (0.0-0.7); ABSOLUTE LYMPHOCYTES 0.8 thou/uL (0.8-5.3); ABSOLUTE MONOCYTES 0.9 thou/uL (0.0-1.2); ABSOLUTE NEUTROPHILS 15.5 thou/uL (1.6-8.1); BASOPHILS 0.5 %; EOSINOPHILS 0.4 %; HEMATOCRIT 31.5 % (37.0-47.0); HEMOGLOBIN 10.4 gm/dL (12.0-15.0); LYMPHOCYTES 4.7 %; MCH 30.2 pg (26.0-34.0); MCHC 33.1 g/dL (28.0-37.0); MCV 91.3 fL (80.0-100.0); MONOCYTES 5.3 %; MPV 9.3 fl. (7.2-11.1); NUCLEATED RBCS 0 /100WBC; PLATELET COUNT* 287 thou/uL (150-400); POLYS 89.1 %; RBC 3.45 mil/uL (4.20-5.00); RDW-CV 16.2 % (10.5-14.5); WBC 17.4 thou/uL (4.0-11.0)
--- NOTE | 2017-10-24 06:54 | NUR ---
Pt on ventimask at 40%, SaO2 mid-90s. Pt in Afib since 2244 last pm. Asymptomatic, VSS. Dr. Mullen informed, no new orders received. HR 100s-110s. No complaints. Will continue to monitor.
--- NOTE | 2017-10-24 09:00 | NUR ---
ASSUMED CARE OF PT AT 0730. PT RESTING IN RECLINER. FAMILY AT BEDSIDE. PT A&0X3-4, FORGETFUL AT TIMES. PT DENIES ANY PAIN OR SHORTNESS OF BREATH AT THIS TIME. PT APPETITE FAIR FOR BREAKFAST- PT HAD HALF OF OATMEAL AND MUFFIN. PT VERY [place]. PT TRACING AFIB ON THE NEUROLOGY NURSE. RATE IN THE 110'S. CARDIOLOGY CONSULT IN PLACE FOR AFIB. PT ON VENTIMASK 40% SAT 96%. CONTINUOUS PULSE OX IN PLACE. PT UP WITH 1 ASSIST TO BSC OR CHAIR. MRSA PENDING. PT GOAL FOR TODAY IS TO CONTROL HEART RATE AND RHYTHM AND INCREASE ACTIVITY. AM ASSESSMENT CHARTED. MEDICATIONS PER MAR WITH ENSURE FOR NUTRITION. PT REPOSITIONS SELF. HOURLY ROUNDING OBSERVED. BED IN LOW POSITION. CALL LIGHT WITHIN REACH. WILL CONTINUE PLAN OF CARE.
--- NOTE | 2017-10-24 09:29 | NUR ---
Updated MP that Pt will not be ready to dc today. Following.
--- NOTE | 2017-10-24 11:07 | CON ---
[address] [address] CONSULTATION Name: KAYLA MENDOZA Room: [address] IN M.R.#: [id number] Admission: 10/18/17 Attend Phys: Boyd Brewer MD Discharge: Date of : 34 Report #: [id number] THIS REPORT FOR: //name// CC: Boyd Boothe REASON FOR CONSULTATION: Hypoxia. HISTORY OF PRESENT ILLNESS: This is an 82-year-old female patient with history of smoking all her life per the family, although they do not think she smoked heavily. She does not carry a diagnosis of COPD, never been on inhaler or oxygen at home. She was admitted to this facility on 10/18/2017 with chest discomfort and was found to have non-ST elevation OR. She underwent cardiac catheterization and stent placements. Apparently post-procedure, she became confused, combative, at one point required restraints. Her oxygen need increased over the course of the last few days. Her chest x-ray also showed increasing infiltrates. Her echocardiogram during this hospital stay demonstrated an ejection fraction of 55%-60% with no evidence of diastolic dysfunction. She had an episode of hypoxia last night, she was placed on nonrebreather. However, by this morning, she was back to 4 liter oxygen, although she does not have oxygen at home. The patient is hard of hearing. She is quiet, did not talk much during my interview with the family were at the bedside, provided most of the history. They noted she is having cough started yesterday with some sputum production, although the cough is better today. They denied history of dysphagia in the past, but they thought she might have choked or aspirated yesterday, although the history is vague. Today, she does not have much of appetite. She is trying to eat. She took some bites during my presence. I did not see evidence of eric aspiration. PAST MEDICAL HISTORY: History of smoking in the past and still actively smoker, history of hypertension, Crohn's disease, hyperlipidemia, reflux disease. ALLERGIES: Imuran, azathioprine. HOME MEDICATIONS: Prior to hospitalization, Mindy, Prozac, Remicade, Corgard, Zocor, Maxzide, multivitamins. SOCIAL HISTORY: She smokes all her life and she is still actively smoker, does not drink alcohol, does not abuse drugs. REVIEW OF SYSTEMS: The patient looks comfortable. She told me that she feels her breathing is fine. She has some cough. No lower extremity edema. No abdominal pain. The rest of the review of system was negative. PHYSICAL EXAMINATION: VITAL SIGNS: She is on 4 liters oxygen with saturation more than 90%, [place] [address] CONSULTATION Name: KAYLA MENDOZA Room: [address] IN M.R.#: [id number] Admission: 10/18/17 Attend Phys: Boyd Brewer MD Discharge: Date of : 34 Report #: [id number] pressure 119/80, pulse rate of 72. Her temperature is 36.3. GENERAL: Elderly lady looks her stated age, comfortable, not in distress, on 4 liter oxygen. Hard of hearing, answers simple questions. HEENT: Normocephalic, atraumatic. Pupils reactive to light. ORAL CAVITY: Moist mucous membrane. NECK: Supple. CHEST: Diminished air movement bilaterally. No wheezes, no crackles, no added sounds. HEART: S1, S2, no murmur. ABDOMEN: Benign, lax, and nontender. LOWER EXTREMITIES: I did not appreciate edema or calf tenderness. SKIN: Normal for age and race, no rash. PSYCHIATRIC: Mood and affect calm and quiet. NEUROLOGIC: Moving 4 extremities spontaneously. No focal weakness. Speech is clear. LYMPHATICS: No palpable lymph nodes. LABORATORY DATA: Her chest x-ray upon hospitalization 10/18/2017, there is no acute process. A repeat chest x-ray on 10/21/2017 showed progressive infiltrate that was demonstrated on the chest x-ray on 10/23/2017. Her white blood count today is 23.5 compared to 13 upon hospitalization. Her hemoglobin today is 10.8 with a platelet of 285 and some left shift. ABGs on 10/21/2017 7.52/22/60. Her D-dimer was not elevated upon hospitalization. Her potassium today is 5.2, creatinine 1.4, it was 1 yesterday. Her BNP was elevated. Her echo as mentioned above. IMPRESSION: 1. Acute hypoxic respiratory failure. 2. Encephalopathy, slowly improving. 3. Possible aspiration to the airways. 4. Pulmonary infiltrate. 5. Pneumonia. 6. Congestive heart failure. 7. Pulmonary edema. 8. History of Crohn's, on Remicade. 9. History of smoking. PLAN: 1. The patient is not actively wheezing at this point. I will hold off on the steroids with a progressive pulmonary infiltrate, pneumonia is suspected. The question is if she aspirated when she was really confused earlier during the hospitalization. I would continue the antibiotics. It was noted that ID were consulted to adjust antibiotic. I will defer to them. I agree with diuresis; however, creatinine jumped up. We will need to monitor creatinine and consider gentle diuresis awaiting Cardiology input. She will be on a scheduled nebulization treatments and p.r.n. treatment. [facility] [address] [place] [address] CONSULTATION Name: KAYLA MENDOZA Room: [address] ADM IN M.R.#: [id number] Admission: 10/18/17 Attend Phys: Boyd Brewer MD Discharge: Date of : 34 Report #: [id number] 2. I explained to the family my concerns about aspiration, although her mental status is better now, but we will ask speech pathology for evaluation. I did recommend for the patient to be n.p.o. for the coming 24 hours to the speech pathology; however, they disagreed. I did discuss with the family and RN. We will monitor her during meal today. If there is any evidence of aspiration, we will keep her n.p.o. Thank you for the consult. We will follow along with you. <ELECTRONICALLY SIGNED> By: Chino Moore MD 10/24/17 1107 1007 1456Portillo Gastelum MD /nt
--- NOTE | 2017-10-24 12:02 | 2DMMODE ---
[address] [place] [address] 2 D/M-MODE ECHOCARDIOGRAM Name: KAYLA MENDOZA Room: [address] ADM IN [facility]#: [id number] Admission: 10/18/17 Attend Phys: Boyd Brewer, Discharge: Date of : 34 Date of Service: 10/24/17 1202 Report #: [id number] THIS REPORT FOR: //name// APPROVED REPORT Study performed: 10/24/2017 11:19:33 EXAM: Limited 2D Echocardiogram Patient Location: In-Patient Room #: [facility] Status: routine BSA: 1.50 HR: 106 bpm BP: 119/77 mmHg Rhythm: NSR Other Information Study Quality: Good Indications Non STEMI Elevated Troponin Chest Pain Follow-up on EF Left Ventricle The left ventricle is normal size. inferior hypokinesis noted There is normal left ventricular wall thickness. Left ventricular systolic function is mildly decreased. LVEF is 40-45%. Right Ventricle The right ventricle is normal size. The right ventricular systolic function is normal. Atria Left atrium is severely dilated. The right atrium size is normal. Aortic Valve Mild aortic valve sclerosis. Mitral Valve The mitral valve is normal in structure. Tricuspid Valve The tricuspid valve is normal in structure. [facility] [address] [place] [address] 2 D/M-MODE ECHOCARDIOGRAM Name: KAYLA MENDOZA Room: [address] IN M.R.#: [id number] Admission: 10/18/17 Attend Phys: Boyd Brewer, Discharge: Date of : 34 Date of Service: 10/24/17 120 Report #: [id number] Pulmonic Valve Pulmonic valve is not well visualized. Great Vessels The aortic root is normal in size. IVC is normal in size and collapses >50% with inspiration. Pericardium There is no pericardial effusion. <Conclusion> LVEF is 40-45%. Left atrium is severely dilated. Mild aortic valve sclerosis. <ELECTRONICALLY SIGNED> By: Cosmo Lawson MD, FACC 10/24/171201 01 01 Cosmo Lawson MD, FACC /INF
--- NOTE | 2017-10-24 15:52 | EKG ---
[place] [address] ELECTROCARDIOGRAM REPORT Name: KAYLA MENDOZA Room: [address] ADM IN .R.#: [id number] Admission: 10/18/17 Attend Phys: Boyd Brewer MD Discharge: Date of : 34 Report #: [id number] THIS REPORT FOR: //name// [facility] Test Date: 2017-10-24 Test Time: 14:13:05 Pat Name: KAYLA MENDOZA Department: Room: [address] Gender: F Director Of Curriculum: : 1935 Requested By: Boyd Brewer Order Number: [id number] Reading MD: Cosmo Lawson Measurements Intervals [place] Rate: 71 P: 27 NH: 152 QRS: 3 QRSD: 103 T: -3 QT: 432 QTc: 470 Interpretive Statements Sinus rhythm Atrial premature complex Probable left atrial enlargement Borderline T abnormalities, inferior leads Compared to ECG 10/23/2017 00:01:25 Atrial premature complex(es) now present Prolonged QT interval no longer present Electronically Signed On 10-24-2017 15:52:36 CDT by Cosmo Lawson [email or web address] <ELECTRONICALLY SIGNED> By: Cosmo Lawson MD, [facility] 10/24/17 1552 1413 1413 Cosmo Lawson MD, [facility] /EPI
--- NOTE | 2017-10-24 17:15 | NUR ---
NO ACUTE CHANGES THROUGHOUT SHIFT. REFER TO CHARTING. PT CONVERTED TO SR. AMIO GTT DISCONTINUED AND PO AMIO STARTED. REFER TO EMAR. RATE IN THE 60'S. BLOOD PRESSURE STABLE. PT CONTINUES TO BE ON 5L HIGH FLOW NC SAT UPPER 90'S, CONTINUOUS PULSE OX IN PLACE, DENIES ANY SHORTNESS OF BREATH. PT GIVEN PO COLACE AND MIRALAX- PT HAD MUTLIPLE FORMED BOWEL MOVEMENTS TODAY- UP TO BSC MULTIPLE TIMES THROUGHOUT SHIFT WITH 1 ASSIST. PT APPETITE BETTER TODAY. PT HAD ABBREVIATED ECHO TODAY. REFER TO RESULTS. PT ALSO HAD CT CHEST TODAY PER PULMONARY- REFER TO RESULTS. MEDICATIONS PER MAY. FAMILY AT BEDSIDE THROGUHOUT SHIFT. PT REPOSITIONS SELF WITH REMINDERS. HOURLY ROUNDING OBSERVED. BED IN LOW POSITION BED ALARM IN PLACE. FALL PRECAUTIONS IN PLACE. CALL LIGHT WITHIN REACH. WILL CONTINUE PLAN OF CARE.
--- NOTE | 2017-10-24 20:00 | NUR ---
RECEIVED REPORT AND ASSUMED CARE OF PT, ASSESSMENT COMPLETED. HOB ELEVATED, O2 ON AT 5L/HFC, CONT PULSE OX ON. HAVING A FREQ MOIST, LOOSE, NON-PROD COUGH. TELEMETRY ON SHOWING SR. WILL CONT TO MONITOR AND ASSIST NEEDED.
[2017-10-25] VITALS: BP 131/74
[2017-10-25 04:00] VITALS: BP 133/74
--- NOTE | 2017-10-25 06:30 | NUR ---
AWAKE ALL NIGHT. PT C/O NOT BEING ABLE TO BREATHE, CONT PULSE OX SHOWING 96-98% SAT ON 5L/HFC. HOB ELEVATED, RT GAVE TX. REASSURANCE GIVEN. UP WITH ASSIST OF 1 PERSON AND OXYGEN ON. HAD BM X2. TELEMETRY CONT TO SHOW SR. NO CHANGE IN ASSESSMENT. ACHIEVED PARTIAL HS GOALS OF SAFETY. HOURLY ROUNDING OBSERVED.
[2017-10-25 08:00] VITALS: BP 152/91
[2017-10-25 08:39] LABS: HEMATOCRIT 33.2 % (37.0-47.0); HEMOGLOBIN 10.9 gm/dL (12.0-15.0); MCH 30.1 pg (26.0-34.0); MCHC 32.8 g/dL (28.0-37.0); MCV 91.5 fL (80.0-100.0); MPV 9.2 fl. (7.2-11.1); NUCLEATED RBCS 0 /100WBC; PLATELET COUNT* 312 thou/uL (150-400); RBC 3.62 mil/uL (4.20-5.00); RDW-CV 15.9 % (10.5-14.5); WBC 15.8 thou/uL (4.0-11.0)
[2017-10-25 08:51] LABS: CALCIUM 8.5 mg/dL (8.5-10.1); CREATININE 1.1 mg/dL (0.6-1.3); TOTAL BILIRUBIN 0.7 mg/dL (<0.1-1.0); TOTAL PROTEIN 6.3 g/dL (6.4-8.2)
[2017-10-25 09:18] LABS: ABSOLUTE LYMPHOCYTES 0.3 thou/uL (0.8-5.3); ABSOLUTE MONOCYTES 0.6 thou/uL (0.0-1.2); ABSOLUTE NEUTROPHILS 14.9 thou/uL (1.6-8.1); PLATELET ESTIMATE ADEQUATE
[2017-10-25 09:19] LABS: ANISOCYTOSIS 1+; POIKILOCYTOSIS 1+
--- NOTE | 2017-10-25 10:11 | NUR ---
ASSUMED CARE OF PT AT 0730. PT RESTING IN BED WAITING FOR BREAKFAST. PT A&0X3-4, FORGETFUL AT TIMES. PT TRIBE. MRSA RESULTS BACK- POSITIVE. PT PLACED IN CONTACT ISOLATION AND EDUCATION GIVEN TO PT AND PT FAMILY. PT TRACING SR ON THE DENTAL SALES REPRESENTATIVE. ON 3L HIGH FLOW NC SAT 95%. PT DENIES ANY PAIN OR SHORTNESS OF BREATH AT THIS TIME. PT UP WITH 1 ASSIST TO BSC. PT IN GOOD SPIRITS TODAY AND STATES SHE IS FEELING BETTER. PT GOAL FOR TODAY IS UP TO CHAIR FOR MEALS AND WORK WITH PHYSICAL AND OCCUPATIONAL THERAPY. AM ASSESSMENT CHARTED. MEDICATIONS PER MAY. PT REPOSITIONS SELF WITH REMINDERS. HOURLY ROUNDING OBSERVED. BED IN LOW POSITION. CALL LIGHT WITHIN REACH. WILL CONTINUE PLAN OF CARE.
[2017-10-25 11:59] VITALS: BP 123/71
--- NOTE | 2017-10-25 14:35 | NUR ---
Nutrition: Pt assessed for LOS. Family in room at time of attempted visit. Pt not discharging yet. Heart Healthy diet. Admitted w/ STEMI. CHF, ARF, HTN. alb 2, prealb 13.8, K+ 3. Wt stable, 110#. No nutrition concerns at this time. Low nutrition risk. Encourage good po/protein intake at meal times.
--- NOTE | 2017-10-25 14:44 | NUR ---
Plan continues to be for Pt to dc to MP at dc. Spoke with dtr and updated on POC. CM will fax updated therapy notes, when available, and ask MP to iniatate auth. Anticipate dc within the next few days. Following.
[2017-10-25 16:33] VITALS: BP 139/79
--- NOTE | 2017-10-25 17:38 | NUR ---
NO ACUTE CHANGES THROUGHOUT SHIFT. REFER TO CHARTING. PT PROGRESSING TOWARDS GOALS. WORKED WITH PHYSICAL AND OCCUPATIONAL THERAPY-TOLERATED WELL. SAT UP IN RECLINER FOR MULTIPLE TIMES THROUGHOUT SHIFT. FAMILY AT BEDSIDE THROUGHOUT SHIFT. OXYGEN TITRATED TO 2L NC SAT REMAINS ABOVE 93%. DENIES ANY SHORTNESS OF BREATH. CONTINUOUS PULSE OX DC'D. PT HAS NON PRODUCTIVE MOIST COUGH. PT ENCOURAGED TO USE IS EVERY 1 HOUR WHILE AWAKE. POTASSIUM BEING REPLACED PER ELECTROLYTE PROTOCOL. REFER TO EMAR. MRSA POSITIVE- PT IN CONTACT ISOLATION. CONTINUES TO TRACE SR ON THE LUSTER REPAIRER. DENIES ANY PAIN. MEDICATIONS PER MAY. PT REPOSITIONS SELF WITH REMINDERS. HOURLY ROUNDING OBSERVED. BED IN LOW POSITION. CALL LIGHT WITHIN REACH. WILL CONTINUE PLAN OF CARE.
[2017-10-26] VITALS: BP 141/85
--- NOTE | 2017-10-26 03:10 | NUR ---
ASSUMED CARE OF PT AT 1900. PT IS ALERT AND ORIENTED. VSS. PERRLA. NO COMPLAINTS OF PAIN. PT WAS ON 2 LITERS AT THE BEGINNING OF THE SHIFT. AT ABOUT 2300, PT REPORTED SOA. SPO2 WAS 84%. O2 WAS TURNED UP TO 6 LITERS TO GET PT ABOVE 90. RT WAS NOTIFIED. PT IS 95% ON THE 6 LITERS AT THIS TIME. PT IS SINUS RYTHM ON THE TELEMETRY. PT IS RESTING COMFORTABLY IN BED. RESPIRATIONS ARE EVEN AND NONLABORED. WILL CONTINUE TO MONITOR PT.
[2017-10-26 04:00] VITALS: BP 183/74
[2017-10-26 08:00] VITALS: BP 152/85
--- NOTE | 2017-10-26 08:00 | NUR ---
ASSUMED RESPONSIBILITY OF PT THIS AM PT IS ALERT AND ORIENTED BUT FORGETFUL AT TIMES VERY ANDREAFSKI SR TRACKING ON THE MULTI SKILLED OPERATOR PT IS NOW ON 5L NC STILL DESATS WHEN AMBULATING IV CONT TO RAC IV ABT RUN THROUGH IT LBM T-1 CRACKLES STILL NOTED IN LUNG BASES PT STATES SHE IS FEELING BETTER TODAY THOUGH JUST DIDN'T GET MUCH SLEEP LAST NIGHT FAMILY AT BEDSIDE DENIES PAIN CALL LIGHT IN REACH
[2017-10-26 08:47] LABS: HEMATOCRIT 33.3 % (37.0-47.0); HEMOGLOBIN 10.7 gm/dL (12.0-15.0); MCH 29.8 pg (26.0-34.0); MCHC 32.1 g/dL (28.0-37.0); MPV 9.4 fl. (7.2-11.1); NUCLEATED RBCS 0 /100WBC; PLATELET COUNT* 336 thou/uL (150-400); RBC 3.58 mil/uL (4.20-5.00); RDW-CV 16.2 % (10.5-14.5); WBC 18.8 thou/uL (4.0-11.0)
[2017-10-26 08:58] LABS: CALCIUM 8.4 mg/dL (8.5-10.1); POTASSIUM 4.8 mmol/L (3.5-5.1); TOTAL BILIRUBIN 0.8 mg/dL (<0.1-1.0); TOTAL PROTEIN 6.2 g/dL (6.4-8.2)
--- NOTE | 2017-10-26 09:26 | NUR ---
FAXED UPDATED THERAPY NOTES TO MP. WAITING ON MP TO INIATATE AUTH. Anticipating dc following.
[2017-10-26 10:05] LABS: ABSOLUTE EOSINOPHILS 0.4 thou/uL (0.0-0.7); ABSOLUTE LYMPHOCYTES 0.2 thou/uL (0.8-5.3); ABSOLUTE MONOCYTES 0.2 thou/uL (0.0-1.2); PLATELET ESTIMATE ADEQUATE
[2017-10-26 11:00] VITALS: BP 134/77
[2017-10-26 16:00] VITALS: BP 127/68
--- NOTE | 2017-10-26 17:00 | NUR ---
RECEIVED CONSULT FOR POSSIBLE REHAB AMISSION. CONSULT HAS BEEN ACKNOWLEDGED BY BOX BLANK MACHINE FEEDER AND DR. LYLE. PT ADMITTED WITH NSTEMI, S/P CATH WITH STENTING. PT ALSO WITH ENCEPHALOPATHY. REQUIRES MUCH ENCOURAGEMENT WITH THERAPIES TO PARTICIPATE AND WAS REFUSING AT TIMES, PARTICIPATION HAS IMPROVED TODAY. UNSURE IF PT WOULD BE ABLE TO TOLERATE 3 HOURS OF THERAPY AT THIS TIME. WILL CONTINUE TO FOLLOW TO SEE HOW PT PROGRESSES AND IF APPROPRIATE ONCE MEDICALLY STABLE FOR SKILLED VS. ACUTE REHAB. THANK YOU FOR THIS CONSULT.
--- NOTE | 2017-10-26 18:46 | NUR ---
PT WITH LARGE BM TODAY DENIES PAIN SAT UP IN CHAIR ALL DAY FAMILY BY BEDSIDE MOST OF THE DAY FAIR APPETITE ATE MANY SNACKS IV ABT CONTINUE NO OTHER CONCERNS THUS FAR
[2017-10-26 19:30] VITALS: BP 142/73
--- NOTE | 2017-10-26 23:42 | NUR ---
ASSUMED CARE OF PT AT 1900. PT IS ALERT AND ORIENTED. VSS. PERRLA. NO COMPLAINTS OF PAIN. PT IS UP WITH ONE ASSIST. NO COMPLAINTS OF SOA. PT IS IN SINUS RYTHM ON THE TELEMETRY. PT IS RESTING COMFORTABLY IN BED. RESPIRATIONS ARE EVEN AND NONLABORED. WILL CONTINUE TO MONITOR PT.
[2017-10-27 00:07] VITALS: BP 136/78
[2017-10-27 03:33] VITALS: BP 154/68
[2017-10-27 04:31] LABS: ABSOLUTE LYMPHOCYTES 0.6 thou/uL (0.8-5.3); HEMOGLOBIN 10.4 gm/dL (12.0-15.0); MPV 8.7 fl. (7.2-11.1)
[2017-10-27 04:33] LABS: ABSOLUTE BASOPHILS 0.1 thou/uL (0.0-0.2); ABSOLUTE EOSINOPHILS 0.2 thou/uL (0.0-0.7); ABSOLUTE MONOCYTES 1.4 thou/uL (0.0-1.2); ABSOLUTE NEUTROPHILS 15.4 thou/uL (1.6-8.1); BASOPHILS 0.4 %; EOSINOPHILS 1.3 %; HEMATOCRIT 32.1 % (37.0-47.0); LYMPHOCYTES 3.6 %; MCH 29.5 pg (26.0-34.0); MCHC 32.3 g/dL (28.0-37.0); MCV 91.2 fL (80.0-100.0); MONOCYTES 7.7 %; NUCLEATED RBCS 0 /100WBC; PLATELET COUNT* 360 thou/uL (150-400); RBC 3.52 mil/uL (4.20-5.00); RDW-CV 15.6 % (10.5-14.5); WBC 17.8 thou/uL (4.0-11.0)
[2017-10-27 04:41] LABS: ALBUMIN 2.1 g/dL (3.4-5.0); CALCIUM 8.7 mg/dL (8.5-10.1); TOTAL BILIRUBIN 0.8 mg/dL (<0.1-1.0); TOTAL PROTEIN 6.5 g/dL (6.4-8.2)
[2017-10-27 04:54] LABS: POTASSIUM 2.8 mmol/L (3.5-5.1)
[2017-10-27 08:00] VITALS: BP 146/94
--- NOTE | 2017-10-27 10:45 | NUR ---
Insurance denied, Dr to complete peer to peer with Dr Renita Meyer [phone]
[2017-10-27 12:04] VITALS: BP 137/68
[2017-10-27 16:05] VITALS: BP 139/72
--- NOTE | 2017-10-27 16:13 | NUR ---
CONTINUING TO FOLLOW PATIENT ALONG WITH DR. LYLE. PER CM, INSURANCE DENIED SKILLED AND PHYSICIAN TO DO PEER TO PEER.
--- NOTE | 2017-10-27 18:11 | NUR ---
RECEIVED REPORT FROM ALEXIS KHAN. ASSUMED CARE OF PT AROUND 0730. PT A&O X4, TANGIRNAQ AND TIRED. VSS. O2 SAT 93% ON 3L PER NC, UNALBE TO TITRATE OFF THIS SHIFT. AM ASSESSMENT AND VITALS COMPLETED CHARTED. STUDENT DEVELOPMENT ADVISOR IN PLACE TRACING SR. IV TO RIGHT AC INTACT AND SALINE LOCKED. PT HAS DENIED PAIN OR DISCOMFORT THIS SHIFT, JUST STATES THAT SHE IS TIRED AND READY TO GO HOME. PT HAS HAD A PRODUCTIVE COUGH THIS SHIFT. PT HAS SAT UP IN BEDSIDE CHAIR MOST OF SHIFT - HAS WORKED WITH THERAPIES SOME TODAY. POTASSIUM IN PROCESS OF BEING REPLACED. FAMILY HAS BEEN AT BEDSIDE MOST OF SHIFT. PT HAS HAD A POOR APPETITE THIS SHIFT DESPITE ENCOURAGEMENT TO EAT. PT CURRENTLY RESTING IN BEDSIDE CHAIR. FALL PRECAUTIONS IN PLACE. CALL LIGHT IS WITHIN REACH. HOURLY ROUNDING PERFORMED. WCTM FOR DURATION OF SHIFT.
[2017-10-28] VITALS: BP 127/77
[2017-10-28 04:00] VITALS: BP 143/85
[2017-10-28 05:12] LABS: ABSOLUTE LYMPHOCYTES 0.4 thou/uL (0.8-5.3); ABSOLUTE MONOCYTES 0.7 thou/uL (0.0-1.2); ABSOLUTE NEUTROPHILS 14.9 thou/uL (1.6-8.1); BASOPHILS 0.3 %; HEMATOCRIT 29.6 % (37.0-47.0); HEMOGLOBIN 9.7 gm/dL (12.0-15.0); LYMPHOCYTES 2.4 %; MCH 29.9 pg (26.0-34.0); MCHC 32.8 g/dL (28.0-37.0); MCV 91.1 fL (80.0-100.0); MONOCYTES 4.1 %; MPV 8.8 fl. (7.2-11.1); NUCLEATED RBCS 0 /100WBC; PLATELET COUNT* 357 thou/uL (150-400); POLYS 93.2 %; RBC 3.25 mil/uL (4.20-5.00); RDW-CV 15.7 % (10.5-14.5)
[2017-10-28 05:34] LABS: ALBUMIN 1.9 g/dL (3.4-5.0); CALCIUM 8.5 mg/dL (8.5-10.1); CREATININE 0.9 mg/dL (0.6-1.3); POTASSIUM 3.3 mmol/L (3.5-5.1); TOTAL BILIRUBIN 0.6 mg/dL (<0.1-1.0)
[2017-10-28 05:54] LABS: PREALBUMIN 12.9 mg/dL (18.0-35.7)
[2017-10-28 08:00] VITALS: BP 143/72
--- NOTE | 2017-10-28 08:01 | NUR ---
PATIENT PARTIALLY PROGRESSING TOWARDS GOALS: PATIENT REMAINS ON 2L O2 NC WITH SATS >92%. PATIENT DENIES SHORTNESS OF AIR, PAIN, AND DISCOMFORT THIS SHIFT. PATIENT UP TO RECLINER MULTIPLE TIMES THROUGHOUT THE NIGHT, PATIENT RESTLESS. XANAX GIVEN PER MAY. PATIENT STATES SHE IS JUST "TIRED AND READY TO GO HOME." PATIENT ENCOURAGED TO COUGH AND DEEP BREATHE. POTASSIUM BEING REPLACED IV AT THIS TIME DUE TO PATIENT BEING UNABLE TO TAKE PO POTASSIUM. HOURLY ROUNDING OBSERVED. CALL LIGHT WITHIN REACH
--- NOTE | 2017-10-28 08:11 | NUR ---
RECEIVED CALL FROM [facility] THAT THEY HAD INSURANCE AUTH FOR SNF. UPDATED NURSE/DR HORNE
--- NOTE | 2017-10-28 11:24 | NUR ---
RECEIVED REPORT FROM ANGÉLICA KHAN. ASSUMED CARE OF PT AROUND 0730. PT A&O X4, [place], TIRED, ALTHOUGH SHE STATES THAT SHE SLEPT BETTER LAST NIGHT THAN THE NIGHT BEFORE. VSS. O2 SAT 91% ON 1.5L PER NC. AD SETTER IN PLACE TRACING SR. AM ASSESSMENT AND VITALS COMPLETED CHARTED. IV TO RIGHT AC INTACT AND INFUSING ANTIBIOTICS. PT ABLE TO EAT JUST A FEW BITES OF BUSCUITS AND GRAVY THIS AM - ENCOURAGED PT TO EAT MORE AND OFFERED AN ENSURE/BOOST DRINK. PT STATED SHE WOULD TRY IT. MEDS PER EMAR. FAMILY AT BEDSIDE. PT UP TO BEDSIDE COMMODE WITH ASSIST X1. PT DENIES PAIN BUT STATES HER THROAT IS SORE THIS AM FROM THE COUGHING. PT TO DC LATER TODAY TO [facility]. PT CURRENTLY SITTING UP IN BEDSIDE CHAIR. CALL LIGHT IS WITHIN REACH, HOURLY ROUNDING PERFORMED. WCTM.
[2017-10-28 11:45] VITALS: BP 141/71
--- NOTE | 2017-10-28 11:49 | NUR ---
ORDERS NOTED FOR DC TO SNF. MET WITH PT AND DTR/SON. IN AGREEMENT WITH GOING TO [place]. CALLED AND FAXED DC ORDERS TO [facility]. THEY HAVE AUTH AND WILL ACCEPT PT TODAY. SHE SET UP W/C VAN FOR 230PM. CHART COPIED. RN HAS NUMBER TO CALL REPORT. FAMILY AND PT AWARE OF TIME
[2017-10-28] MEDS ORDERED: BRILINTA90 MG PO (11:52)
[2017-10-28] MEDS ORDERED: PACERONE200 MG PO (11:54)
[2017-10-28] MEDS ORDERED: DOXYCYCLINE 10100 MG PO (11:55)
[2017-10-28] MEDS ORDERED: IPRAT-ALBUT 0.5-3 ML INH (11:59)
[2017-10-28] MEDS ORDERED: FLORANEX TABLE1 EACH PO (12:00)
[2017-10-28] MEDS ORDERED: PROTONIX40 M1 PO (12:01)
[2017-10-28] MEDS ORDERED: MUCINEX600 MG PO (12:02)
[2017-10-28] MEDS ORDERED: TESSALON PERLE100 MG PO (12:03)
[2017-10-28] MEDS ORDERED: VANCOCIN PO (12:04)
[2017-10-28] MEDS ORDERED: VITAMIN B-12500 MCG PO (12:05)
[2017-10-28] MEDS ORDERED: AUGMENTIN 875-1 EACH PO (12:06)
[2017-10-28] MEDS ORDERED: NYSTATIN100000 UNI SW&SWALLOW (12:06)
[2017-10-28] MEDS ORDERED: PREDNISONE 10 M10 MG PO (12:07)
[2017-10-28 12:19] VITALS: BP 162/64
[2017-10-28] MEDS ORDERED: XANAX 0.25 MG0.25 MG PO (13:57)
--- NOTE | 2017-10-28 14:47 | NUR ---
DISCHARGE ORDERS RECEIVED. DISCHARGE COMPLETED CHARTED. DISCHARGE SUMMARY PLACED IN PACKET FOR FACILITY ALONG WITH SCRIPTS AND APPOINTMENT CARDS. COPY OF DISCHARGE SUMMARY GIVEN TO FAMILY. IV AND AIR SAMPLER REMOVED. ALL BELONGINGS GATHERED AND SENT WITH PT/FAMILY. PT LEFT UNIT IN WC WITH TRANSPORTER. PT LEFT HOSPITAL IN WHEELCHAIR VAN WITH TRANSPORTER. REPORT CALLED TO [facility], SPOKE TO MINOO KHAN.
--- NOTE | 2017-10-31 14:47 | CON ---
[address] [address] CONSULTATION Name: KAYLA MENDOZA Room: [address] IN M.R.#: [id number] Admission: 10/18/17 Attend Phys: Boyd Brewer MD Discharge: 10/28/17 Date of : 33 Report #: [id number] THIS REPORT FOR: //name// CC: Boyd Kelly Boothe DATE OF SERVICE: 10/23/2017 TYPE OF REPORT: Infectious diseases consultation. REASON FOR CONSULTATION: Evaluate pneumonia, healthcare associated, in the setting of immunosuppression. HISTORY OF PRESENT ILLNESS: The patient is an 82-year old with known history of tobacco use and Crohn's disease, on Remicade; who was admitted on 10/18/2017 with unstable angina, found to have a [id number] CO, underwent stenting procedure. Post-procedure, became confused and combative. Oxygen requirements increased after this. Chest x-ray showed bilateral increased upper lung infiltrates. Increased oxygen requirement. Given one day of high dose corticosteroids on 10/21/2017 and started on IV antibiotic therapy including ceftazidime. Although she has had no fever or chills and her oxygen requirements remained at 5 liters. She remained weak. Poor appetite. Intermittent cough with occasional sputum production without hemoptysis. No chest pain or pleuritic discomfort. Does have some upper abdominal discomfort. REVIEW OF SYSTEMS: CONSTITUTIONAL: Overall appears comfortable. She was having no complaints. She was resting. Denied any fever or chills. SKIN: No skin rashes or decubiti. LYMPHATIC: Negative. CARDIOPULMONARY: As above. GASTROINTESTINAL: Constipation. No reflux. GENITOURINARY: Negative. JOINT: Negative. NEUROLOGICAL: As above. HEMATOLOGIC: Negative. ALLERGIES: IMURAN and AZATHIOPRINE. MEDICATIONS: As noted on her MAY, now including ceftazidime. Prior to her hospitalization, she was on Mindy, Prozac, Coreg, Maxzide, Zocor, Remicade and multivitamin. PAST MEDICAL HISTORY: Hypertension, hyperlipidemia, gastroesophageal reflux, Crohn's disease, C. difficile colitis about a year or so ago, treated at [place] where [place] [id number] CONSULTATION Name: KAYLA MENDOZA Room: [address]#: [id number] Admission: 10/18/17 Attend Phys: Boyd Brewer MD Discharge: 10/28/17 Date of : 33 Report #: [id number] FAMILY HISTORY: Noncontributory. SOCIAL HISTORY: Smoker of cigarettes. No significant alcohol intake. No HIV risks. PHYSICAL EXAMINATION: VITAL SIGNS: Afebrile and hemodynamically stable. GENERAL: She was lying in bed with a Ventimask in place. She was hard of hearing. HEENT: Otherwise, unremarkable. NECK: Supple, with no elevated JVD. No masses or thyromegaly. No lymphadenopathy. SKIN: Unremarkable. LUNGS: Coarse breath sounds mostly in the right upper mid posterior chest. No consolidation. No rub. CARDIOVASCULAR: Heart was regular without appreciable murmur, gallop or rub. ABDOMEN: Soft and nontender. No hepatosplenomegaly or mass. EXTREMITIES: Unremarkable. NEUROLOGICAL: Nonfocal. EXTREMITIES: Unremarkable. IV site unremarkable. LABORATORY STUDIES: Sodium 138, potassium 3.6, bicarbonate 22 and creatinine 1.1. ALT 69. BNP 13,780. Hemoglobin 10.8; platelet count 285,000 and white count 32,000 with 94% segs and 5% monocytes. Urinalysis unremarkable. Sputum and stool cultures pending. RADIOLOGICAL DATA: Chest x-ray, increased bilateral pulmonary infiltrates, right greater than left in the upper lobes. IMPRESSION: An 82-year old status post myocardial infarction with stents with post-procedure confusion. Hypoxia due to aspiration pneumonia. I suspect the leukocytosis is related to pneumonia as well as her high dose steroids that were given on 10/21/2017. She is immunosuppressed on Remicade for Crohn's disease, which appears under control. Has a history of Clostridium difficile colitis inactive. RECOMMENDATIONS: While awaiting sputum culture, we will also check nasal swab for MRSA screen. Treat for aspiration pneumonia with Zosyn. Add enteral vancomycin while on broad-spectrum antibiotics. Hold next dose of Remicade until situation clears. Serial CBCs and chest x-ray. Pulmonary medicine. We will follow for high oxygen requirements. <ELECTRONICALLY SIGNED> By: Thomas Remy MD 10/31/17 [id number] [id number] Remy MD /nt
== END 2017-10-28 14:44 | DRG 246 ==
LOC: M.ERS 00:05 → M.TBA-ER 01:11 → M.ICU 18:35 → M.2W 10-20 11:21
PROVIDERS: Family Medicine; Internal Medicine; Internal Medicine Cardiovascular Disease; Psychiatry & Neurology Neurology; Specialist; ADMIT Internal Medicine
PROC: B2111ZZ Fluoroscopy of Multiple Coronary Arteries using Low Osmolar Contrast (ICD-10-PCS; principal; 2017-10-22)
PROC: 4A023N7 Measurement of Cardiac Sampling and Pressure, Left Heart, Percutaneous Approach (ICD-10-PCS; principal; 2017-10-22)
PROC: 027034Z Dilation of Coronary Artery, One Artery with Drug-eluting Intraluminal Device, Percutaneous Approach (ICD-10-PCS; principal; 2017-10-22)
PROC: B2151ZZ Fluoroscopy of Left Heart using Low Osmolar Contrast (ICD-10-PCS; principal; 2017-10-22)
DX: I21.4 Non-ST elevation (NSTEMI) myocardial infarction (principal); J69.0 Pneumonitis due to inhalation of food and vomit; G93.40 Encephalopathy, unspecified; I50.33 Acute on chronic diastolic (congestive) heart failure; J96.01 Acute respiratory failure with hypoxia; K50.90 Crohn's disease, unspecified, without complications; R65.10 Systemic inflammatory response syndrome (SIRS) of non-infectious origin without acute organ dysfunction; I13.0 Hypertensive heart and chronic kidney disease with heart failure and stage 1 through stage 4 chronic kidney disease, or unspecified chronic kidney disease; J90 Pleural effusion, not elsewhere classified; E44.0 Moderate protein-calorie malnutrition; I25.110 Atherosclerotic heart disease of native coronary artery with unstable angina pectoris; H66.92 Otitis media, unspecified, left ear; E78.5 Hyperlipidemia, unspecified; F32.9 Major depressive disorder, single episode, unspecified; K21.9 Gastro-esophageal reflux disease without esophagitis; N18.9 Chronic kidney disease, unspecified; J44.9 Chronic obstructive pulmonary disease, unspecified; M19.90 Unspecified osteoarthritis, unspecified site; E53.8 Deficiency of other specified B group vitamins; I48.91 Unspecified atrial fibrillation; Z68.20 Body mass index [BMI] 20.0-20.9, adult; Z87.891 Personal history of nicotine dependence; Z79.2 Long term (current) use of antibiotics; Z79.82 Long term (current) use of aspirin; Z79.899 Other long term (current) drug therapy; Z79.01 Long term (current) use of anticoagulants; Z88.8 Allergy status to other drugs, medicaments and biological substances